=== PATIENT | female | born 1995 | race African-American/Black ===

== ENCOUNTER 2025-07-08 00:08 | Emergency (ER) | payer OTHER ==
[~2025-07-08] VITALS: Ht 167.6 cm; Wt 91.0 kg
[2025-07-08 00:18] VITALS: O2SAT 100
[2025-07-08 00:37] VITALS: BP 127/77; PULSE 85; RESP 18; TEMP 36.7; O2SAT 100
[2025-07-08] MEDS: PSEUDOEPHEDRINE HCL 30MG TABLET PO STA (02:06)
[2025-07-08] MEDS: MECLIZINE 25MG TABLET PO ONE (02:06)
[2025-07-08] MEDS: KETOROLAC 15MG/ML VIAL IM ONE (02:07)
[2025-07-08] MEDS ORDERED: IBUP-1455 MT (03:01)
== END 2025-07-08 03:50 | disposition home or self-care (01) ==
LOC: ER 00:08
DX: H92.03 Otalgia, bilateral (principal); R42 Dizziness and giddiness; Z88.0 Allergy status to penicillin
CPT/HCPCS: 81025; 96372; 99283; J8597; J1885; Z7610